=== PATIENT | female | born 1975 | race Caucasian/White ===

== ENCOUNTER 2021-06-26 02:27 | Emergency (ER) | payer OTHER ==
[~2021-06-26] VITALS: Ht 157.5 cm; Wt 68.0 kg
[2021-06-26 02:39] VITALS: BP 106/78
--- NOTE | 2021-06-26 02:40 | NUR ---
BIBS C/O "WEIRD LEG MOVEMENT AND NOT FEELING RIGHT" AFTER TAKING LYRICA X2 DAYS. PATIENT ALERT AND ORIENTED X3. AMBULATORY WITH NON LABORED BREATHING IN BED 07.
[2021-06-26] MEDS ORDERED: LORAZEPAM 0.5 MG TABLET ONE (03:16)
[2021-06-26] MEDS ORDERED: LORAZEPAM 1 MG TABLET PO ONE (03:30)
--- NOTE | 2021-06-26 03:35 | NUR ---
Salvador renae in [facility] - 06/26/21 at 0336 by ISA EMT @ BEDSIDE FOR ERVIN
--- NOTE | 2021-06-26 03:35 | NUR ---
Salvador renae in [facility] - 06/26/21 at 0336 by ISA BLOOD COLLECTED AND SENT TO LAB
[2021-06-26 04:56] LABS: ALBUMIN 4.3 g/dL (3.4-5.0); BILIRUBIN,TOTAL 0.4 mg/dL (0.2-1.0); CREATININE 0.9 mg/dL (0.6-1.3); POTASSIUM 3.7 mmol/L (3.5-5.1); TOTAL PROTEIN, SERUM 7.8 g/dL (6.4-8.2)
== END 2021-06-26 05:16 | disposition home or self-care (01) ==
LOC: EDUNIT# 02:27 → ER 02:44
DX: F06.2 Psychotic disorder with delusions due to known physiological condition (principal); T42.6X5A Adverse effect of other antiepileptic and sedative-hypnotic drugs, initial encounter; I48.91 Unspecified atrial fibrillation; F31.9 Bipolar disorder, unspecified; Z88.2 Allergy status to sulfonamides; Y92.89 Other specified places as the place of occurrence of the external cause
CPT/HCPCS: 36415; 80053-TC

== ENCOUNTER 2021-07-14 17:53 | Emergency (ER) | payer BC, OTHER ==
[~2021-07-14] VITALS: Ht 162.6 cm; Wt 72.6 kg
--- NOTE | 2021-07-14 18:10 | NUR ---
Called NO response
--- NOTE | 2021-07-14 18:15 | NUR ---
Called NO response
--- NOTE | 2021-07-14 18:30 | NUR ---
Body aches all over/Had elective surg and post op site hurts worse. Aware of plan of care
[2021-07-14] MEDS ORDERED: HYDR-3972 PO (18:47)
[2021-07-14] MEDS ORDERED: HYDROCODONE/APAP 5/325MG TABLET ONE (18:48)
--- NOTE | 2021-07-14 18:53 | NUR ---
Patient discharged to home in stable condition. Written and verbal after care instructions given. Patient verbalizes understanding of instruction.
[2021-07-14 18:55] VITALS: BP 128/68
[2021-07-14] MEDS ORDERED: HYDROCODONE/APAP 5/325MG TABLET PO ONE (19:00)
== END 2021-07-14 18:55 | disposition home or self-care (01) ==
LOC: ER 17:57
DX: U07.1 COVID-19 (principal); G89.18 Other acute postprocedural pain; I48.91 Unspecified atrial fibrillation; Z98.890 Other specified postprocedural states; Z88.2 Allergy status to sulfonamides

== ENCOUNTER 2021-07-23 19:41 | Emergency (ER) | payer BC, OTHER ==
[~2021-07-23] VITALS: Ht 157.5 cm; Wt 58.1 kg
[~2021-07-23 19:41] MED LIST: HYDR-3972 PO
--- NOTE | 2021-07-23 20:35 | NUR ---
BIBFRIEND C/O HOT FLUSHES, MUSCLE ABD FOOT CALF CRAMPS X 3 DAYS. PATIENT IS AAOX4. PLACED COMFORTABLY IN BED. VITALS CHECKED.
--- NOTE | 2021-07-23 21:57 | NUR ---
IV CANNULA INSERTED ON RIGHT FA USING G22 NEEDLE.
--- NOTE | 2021-07-23 21:58 | NUR ---
URINE SAMPLE SENT TO LAB,
--- NOTE | 2021-07-23 21:58 | NUR ---
PAD CUTTER AT BEDSIDE
[2021-07-23] MEDS ORDERED: KETOROLAC TROMETHAMINE INJ 30 MG/ML VIAL IV ONE (22:00)
[2021-07-23 22:04] LABS: BASOPHILS % (AUTO) 0.7 % (0.0-2.0); HEMATOCRIT 38 % (33-45); HEMOGLOBIN 12.9 g/dL (11.5-14.8); LYMPHOCYTES # (AUTO) 1.2 K/uL (0.8-4.8); LYMPHOCYTES % (AUTO) 22.6 % (20.0-44.0); MEAN CORPUSCULAR HGB CONC 34 g/dl (31.0-36.0); MEAN CORPUSCULAR VOLUME 93 fL (82-100); MONOCYTES # (AUTO) 0.4 K/uL (0.1-1.30); MONOCYTES % (AUTO) 7.4 % (2.0-12.0); NEUTROPHILS # (AUTO) 3.5 K/uL (1.8-8.9); NEUTROPHILS % (AUTO) 68.3 % (43.0-81.0); PLATELET COUNT (AUTO) 368 K/uL (150-450); RED BLOOD CELL COUNT(AUTO) 4.12 MIL/uL (4.0-5.2); WHITE BLOOD COUNT (AUTO) 5.1 K/uL (4.3-11.0)
[2021-07-23] MEDS ORDERED: KETOROLAC TROMETHAMINE 15 MG/ML VIAL ONE (22:04)
--- NOTE | 2021-07-23 22:08 | NUR ---
Toradol ivpush given for pain.
[2021-07-23 22:17] LABS: ALBUMIN 4.1 g/dL (3.4-5.0); BILIRUBIN,DIRECT 0.1 mg/dL (0.0-0.2); BILIRUBIN,TOTAL 0.2 mg/dL (0.2-1.0); CALCIUM, SERUM 9.7 mg/dL (8.5-10.1); POTASSIUM 3.7 mmol/L (3.5-5.1); TOTAL PROTEIN, SERUM 8.1 g/dL (6.4-8.2)
[2021-07-23 22:28] LABS: BILIRUBIN,URINE NEGATIVE (NEGATIVE); COLOR,URINE YELLOW (YELLOW); LEUKOCYTE ESTERASE ,URINE NEGATIVE (NEGATIVE); NITRITE, URINE NEGATIVE (NEGATIVE); PROTEIN,URINE NEGATIVE (NEGATIVE); UGLUCOSE NEGATIVE (NEGATIVE); UROBILINOGEN,URINE 0.2 EU/dL (0.2)
--- NOTE | 2021-07-23 22:37 | NUR ---
PATIENT FOR CT SCAN AT RADIOLOGY DEPT.
--- NOTE | 2021-07-23 23:45 | NUR ---
PT STATES SHE HAS PAIN DESCRIBED "SPASMS" ALL OVER HER MUSCLES , MADE AWARE
[2021-07-23] MEDS ORDERED: TRAMADOL HCL 50 MG TABLET ONE (23:50)
[2021-07-23] MEDS ORDERED: CYCL5TAB PO (23:51)
[2021-07-24] MEDS ORDERED: TRAMADOL HCL 50 MG TABLET PO ONE
--- NOTE | 2021-07-24 00:03 | NUR ---
Patient discharged to home in stable condition. Written and verbal after care instructions given. Patient verbalizes understanding of instruction.
--- NOTE | 2021-07-24 00:03 | NUR ---
IV removed. Catheter intact and site benign. Pressure and 4x4 applied to site. No bleeding noted.
[2021-07-24 00:08] VITALS: BP 120/70
== END 2021-07-24 00:08 | disposition home or self-care (01) ==
LOC: ER 19:50
DX: G89.18 Other acute postprocedural pain (principal); I48.91 Unspecified atrial fibrillation; Z98.890 Other specified postprocedural states; Z88.2 Allergy status to sulfonamides; Z60.2 Problems related to living alone
CPT/HCPCS: 36415; 71045; 74176; 80048; 80076; 81003; 83690; 84703; 85025; 96374; 99285; J1885